=== PATIENT | female | born 1985 | race Caucasian/White ===

== ENCOUNTER 2018-02-28 18:56 | Inpatient (IN) | payer MEDICAID, OTHER ==
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
[2018-02-28] MEDS ORDERED: OLANZapine DISINTEGR 5 MG TAB PO ONE (19:07)
[2018-02-28 20:05] LABS: PLATELET COUNT 185 10^3/uL (150-400)
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
--- NOTE | 2018-02-28 22:06 | ASMTTCLDSP ---
TLC Discharge Disposition Disposition: Answers: Admit Disposition Notes: Notes: In consultation with [facility] ED Physician, Adarsh Wasserman MD and on-call Psychiatrist, Chito Willson both concurred that pt appears to meet 27-65 criteria regarding psychiatric hospitalization as pt appears to be at risk of harm to self due to a mental illness condition. Pt was given the 3N prohibited belongings list while in the ED. Was patient given the Answers: Yes Inpatient Behavioral Health Prohibited Belongings List while in the ED? For inpatient Dr Chito Willson admission, the following psychiatrist agreed to accept patient for admission to Behavioral Health ([facility]): Type of Hold: Answers: /72-hour Hold Date Signed: 02/28/2018 10:06 PM Electronically Signed By:Estrellita Green
[2018-02-28] MEDS ORDERED: LORazepam 0.5 MG TAB PO PRN (23:55)
[2018-02-28] MEDS ORDERED: OLANZapine DISINTEGR 5 MG TAB PO PRN (23:55)
[2018-02-28] MEDS ORDERED: MELATONIN 3 MG TAB PO PRN (23:55)
[2018-02-28] MEDS ORDERED: MAGNESIUM HYDROXIDE 30 ML UDCUP PO PRN (23:55)
[2018-02-28] MEDS ORDERED: MAG HYDROX/AL HYDROX/SIMETH 30 ML UDCUP PO PRN (23:55)
[2018-02-28] MEDS ORDERED: ACETAMINOPHEN 325 MG TAB PO PRN (23:55)
--- NOTE | 2018-03-01 07:05 | PDMN ---
Medical Necessity Medical necessity: [facility] [id number] Schizophrenia Spectrum Disorders, Adult: Inpatient Care: 32 yo w/ unspecified schizophrenia spectrum and other psychotic d/o, r/o bipolar I d/o w/ psychotic features, mod cannabis use d/o. Risk of harm to self on M1 hold.
--- NOTE | 2018-03-01 09:32 | ASMTBHMTP ---
Master Treatment Plan Master Treatment Plan Answers: Depressed Mood with for: Suicidal Ideation Date: 03/01/2018 Diagnosis on Admission: Bipolar I Disorder, with psychotic features, recent episode hypomanic 296.44 (F31.2) Expected length of stay: 3-5 Reason for admission: Notes: The patient stated, "I've not been feeling well. I felt like I was being shocked in the back. I couldn't remember what day it is. I felt really dazed, like I was drugged." Patient's stated presenting problems: Notes: The patient stated, Sometimes I don't have control over what I say and I really don't like that. I hear voices. The voices vary from instructional, funny, and kind of like uh... what... [gossip like]. I feel stuff every once in a while; like I'm being pat on the shoulder. I went to spiritism about it. I like the instructional ones best; turn left, turn right, pick this up." Patient's goals for treatment: Notes: The patient stated, "I want to feel better. I felt woozy after they melanie my blood yesterday." Patient's strengths: Notes: The patient stated, "Confident and nice." Identify supports outside of hospital: Notes: The patient denied family support. She reported that her parents live in [place] and her sister and [id number] live in [place], [place]. She stated that her relationships with family are "not good." The patient identified outpatient providers including psychiatrist and a counselor at [facility]. Discharge criteria: Notes: Suicidal ideation will resolve and patient will have a plan for to safely manage recurrent suicidal ideation. Initial disposition plan/considerations: Notes: The patient plans to return to where she was living prior to admission; her spiritism. She reported that the living situation was stable until yesterday when "It didn't seem like it did before. The vibes were different. People were off." Master Treatment Plan Required Signatures Psychiatrist signature: Answers: Psychiatrist: RN on-shift signature: Answers: RN: Patient signature: Answers: Patient: Date Signed: 03/01/2018 09:31 AM Electronically Signed By:Cecy Mei
--- NOTE | 2018-03-01 17:19 | SOAPPROG ---
SOAP Progress Note Assessment/Plan: Assessment: Plan: 03/01/18 17:18 Psychosis: Will continue PRN Zyprexa, monitor status. Complete full evaluation when patient more able to give history. Subjective: Pt seen, discussed with staff, chart reviewed. 32 y/o CF with hx of "chronic psychosis." Admitted due to paranoid delusions and AH's. She is sedated, unable to participate in interview on two occasions today. Objective: Vital Signs Temp Pulse Resp BP Pulse Ox 36.7 C 74 16 104/68 96 03/01/18 00:20 03/01/18 00:20 03/01/18 00:20 03/01/18 00:20 03/01/18 00:20 - Time Spent With Patient Time Spent With Patient: 25" ICD10 Worksheet Patient Problems: Problems Problem Status Onset Acute psychosis Acute
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
[2018-03-01] MEDS: OLANZapine DISINTEGR 5 MG TAB PO PRN (19:04)
[2018-03-01] MEDS: NICOTINE POLACRILEX 2 MG GUM B PRN ×3 (19:08→21:42)
[2018-03-02] MEDS: FERROUS SULFATE 325 MG TAB PO SCH (08:14)
[2018-03-02] MEDS: OLANZapine DISINTEGR 5 MG TAB PO PRN ×2 (08:15→12:14)
[2018-03-02] MEDS: NICOTINE POLACRILEX 2 MG GUM B PRN ×4 (08:58→17:34)
[2018-03-02] MEDS: LORazepam 0.5 MG TAB PO PRN (12:14)
--- NOTE | 2018-03-02 15:19 | ASMTCMCOM ---
CM Note CM Note Notes: The patient participated in clinical treatment team rounds. She was labile and irritable. She stated, "I'm bored. I feel sick. I know how my own body feels. I shouldn't have to struggle in my own body." The patient reported that she "had no idea" or "didn't know" how the treatment team could support her. The patient declined to start medication. The patient was asked about previous providers including [facility]. Per Tory, from [facility], the patient was discharged from [facility] care. She stated, "I don't like that brice he is an idiot." Upon learning the psychiatrist's name the patient stated, "You guys just make this shit up. Ya right." According to [facility] staff, the patient has been refusing PRN medication and has been observed responding to internal stimuli. Date Signed: 03/02/2018 03:16 PM Electronically Signed By:Cecy Mei
--- NOTE | 2018-03-02 17:20 | BAPA ---
DATE OF SERVICE: 03/02/2018 DATE OF EVALUATION: 03/01/2018 and 03/02/2018. CHIEF COMPLAINT: "They were trying to hurt me." HISTORY OF PRESENT ILLNESS: The patient is a 32-year-old female with a self-reported histo ry of "psychosis." She presented to the emergency department after having been brought in by police after causing a disturbance in the public, possibly in a nondenominational, where she stated she was being stabb ed by invisible people. In the emergency department, she was extremely guarded, hostile, paranoid, a nd appeared to be responding to internal stimuli. She was not forthcoming of history and was not fam iliar to [facility] or ER staff. She stated that she was being attacked, but she would not give details of this. I went to interview her yesterday on 2 occasions and she refused to speak. Earlier in the [facility], she was asleep and later she was guarded and refused to talk, acting as if she was still sleepi ng. This morning she is more interactive, though is extremely paranoid and hostile. She is interviewed i n our treatment team meeting and is obviously suspicious. I introduced myself as Dr. Guerrero and she states, "That is your real name. Right." She then stared at me suspiciously and hostilely for anot her 5 minutes, refusing to answer further questions until she abruptly left the interview. In the va lieu, she is noted to be talking to herself and at times seeming to argue with unseen persons. She i s hostile to fellow patients and staff, and does not tolerate being asked any questions. I attempted to discuss with her what medications she normally takes and she states she has never taken any medic ations. I do not believe this to be true and asked her if there were any medicines that worked for h er and she named several medicines that she stated did not work for her including Risperdal, Zyprexa, and Seroquel. PAST PSYCHIATRIC HISTORY: Significant for a history of chronic psychosis, though where this informat ion comes from I do not know. The patient will not give any other information in regard to past medi cations or past hospitalizations. ALLERGIES: Cefaclor. CURRENT MEDICATIONS: None. PAST MEDICAL HISTORY: Noncontributory per patient's report. SOCIAL HISTORY: Largely unknown. The patient states that she lives in a nondenominational and gives the addres s of a nondenominational in [facility] as her home address. She then insists she lives in a nondenominational in [place]. She has a primary care physician, Dr. Navarro, in [place] and there is information that she used to attend [facility]. FAMILY HISTORY: The patient denies any family history of psychiatric problems. [facility] report states th at she said both of her parents have mental health problems. ADMISSION LABORATORY: CBC shows white count down at 3.58, hemoglobin and hematocrit down at 12.1 and 37.1. MCV is normal at 97.4. Serum chemistries are normal. Hemoglobin A1c is normal at 5.7. Live r function is normal. Lipid profile is normal. Beta hCG is negative. Urine drug screen is positive for marijuana. Alcohol is less than detectable. MENTAL STATUS EXAMINATION: Reveals a robust, healthy-appearing, female. She has very shor t hair and is dressed in hospital garb. She stares in angry and hostile way at me throughout the int erview and then mumbles under her breath. I can hear swear words, but cannot make out anything else. Her affect is angry and constricted. Her mood is described as "totally messed up." Her thought pr ocess is disorganized. Her thought content reveals paranoid and persecutory delusions, possible leslie tory hallucinations, and possible tactile hallucinations of being stabbed or touched. She is alert a nd oriented to person, place, time, and situation, and her sensorium is clear. It is difficult to as sess her intellect at this time. She will not answer questions regarding suicidality, homicidality, or violence. Her insight and judgment appear to be poor. IMPRESSION: Unspecified psychotic disorder. 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 Possible schizoph jaimee, paranoid type, chronic with acute exacerbation. Homelessness. Lack of support. Treatment no ncompliance. The patient is a 32-year-old female with a history of chronic psychosis of some type. She is most likely schizophrenic, though this could represent a cannabis-induced phenomena. She is very hostile and paranoid at this time and unwilling to cooperate. She did take medications offered to he r on a p.r.n. basis, specifically Ativan and Zyprexa, and we will continue these. I will give a sche duled dose of 10 mg Zyprexa at bedtime to hopefully re-establish her sleep cycle and treat her acute psychosis. Attempts to discuss the risks, benefits, and alternatives with her are unsuccessful as luca whitt terminates the interview abruptly if I bring up the subject. Estimated length of stay is 5-7 days. /[id number]/MODL
[2018-03-02] MEDS: OLANZapine DISINTEGR 10 MG TAB PO SCH (21:27)
[2018-03-03] MEDS: FERROUS SULFATE 325 MG TAB PO SCH ×2 (08:12→08:57)
[2018-03-03] MEDS: NICOTINE POLACRILEX 2 MG GUM B PRN ×3 (08:44→16:16)
[2018-03-03] MEDS: LORazepam 0.5 MG TAB PO PRN (11:08)
[2018-03-03] MEDS: OLANZapine DISINTEGR 5 MG TAB PO PRN (11:08)
--- NOTE | 2018-03-03 17:40 | SOAPPROG ---
SOAP Progress Note Assessment/Plan: Assessment: Per Dr. Guerrero's notes: 03/01/18 17:18 Psychosis: Will continue PRN Zyprexa, monitor status. Complete full evaluation when patient more able to give history. Subjective: Pt seen, discussed with staff, chart reviewed. 32 y/o CF with hx of "chronic psychosis." Admitted due to paranoid delusions and AH's. She is sedated, unable to participate in interview on two occasions today. Plan: 03/03/18 17:36 1. Patient irritable and agitated this AM. She was calling other patients "fat" and "ugly" and needed to be redirected to her room to calm down. Patient agreed to take PRN of Zyprexa and Ativan, and slept most of the rest of the day. 2. Patient agreed take Olanzapine 10mg HS. 3. Change legal status to [facility]. Subjective: Patient acting inappropriately this AM. She was calling peers "fat" and "ugly" despite numerous interventions from staff. Eventually she was redirected to her room where she took space and calmed down. She took PRN meds and slept most of the day. She was calmer and more cooperative in PM. Objective: Vital Signs Temp Pulse Resp BP Pulse Ox 36.8 C 69 20 97/52 L 95 03/03/18 06:00 03/03/18 06:00 03/03/18 06:00 03/03/18 06:00 03/03/18 06:00 MSE: Affect: Irritable Mood: "OK", agitated at times TP: Tangential, disorganized TC: Denies any SI/HI Insight/Judgment: Impaired - Time Spent With Patient Time Spent With Patient: 15" - Pending Discharge Pending Discharge Within 24 Hours: No Pending Discharge Within 48 Hours: No ICD10 Worksheet Patient Problems: Problems Problem Status Onset Acute psychosis Acute
[2018-03-03] MEDS: OLANZapine DISINTEGR 10 MG TAB PO SCH (21:34)
[2018-03-04] MEDS: FERROUS SULFATE 325 MG TAB PO SCH (08:30)
[2018-03-04] MEDS: NICOTINE POLACRILEX 2 MG GUM B PRN ×6 (08:51→21:00)
--- NOTE | 2018-03-04 13:58 | ASMTCMCOM ---
CM Note CM Note Notes: The patient reported that she was "bored." She stated, "The bigger nurses were like blah, blah, blah." The patient signed releases of information for her sister, [employer]ers ([phone]), and [facility] ([facility]). This blurb writer left a voicemail with the patient's sister. This blurb writer discussed with the patient starting services with [facility] outpatient if she decides to stay in [place], [place] upon discharge. The patient agreed to follow up with [facility] services. This blurb writer sent a referral to [facility] for the patient. Date Signed: 03/04/2018 01:57 PM Electronically Signed By:Cecy Mei
--- NOTE | 2018-03-04 17:57 | SOAPPROG ---
SOAP Progress Note Assessment/Plan: Assessment: Per Dr. Guerrero's notes: 03/01/18 17:18 Psychosis: Will continue PRN Zyprexa, monitor status. Complete full evaluation when patient more able to give history. Subjective: Pt seen, discussed with staff, chart reviewed. 32 y/o CF with hx of "chronic psychosis." Admitted due to paranoid delusions and AH's. She is sedated, unable to participate in interview on two occasions today. Plan: 03/03/18 17:36 1. Patient irritable and agitated this AM. She was calling other patients "fat" and "ugly" and needed to be redirected to her room to calm down. Patient agreed to take PRN of Zyprexa and Ativan, and slept most of the rest of the day. 2. Patient agreed take Olanzapine 10mg HS. 3. Change legal status to [facility]. 03/04/18 17:53 1. Patient less irritable today. She is not aggressive or hostile toward peers, but has been rude and irritable toward staff. 2. Patient is compliant with medications and did attend at least one group therapy today. 3. Patient is more present in milieu, slept 8hrs last night and ate 100% of meals. 4. [facility] Subjective: Patient sitting in chair in front of TV playing games with peers. She is laughing and making jokes with peers. She is less hostile and not insulting peers, but her jokes are making fun of staff. When prompted, she does cooperate and change topic of conversation. She has not needed any PRN medications for agitation or anxiety today. Objective: Vital Signs Temp Pulse Resp BP Pulse Ox 37 C 102 H 20 93/53 L 95 03/04/18 06:00 03/04/18 06:00 03/04/18 06:00 03/04/18 06:00 03/04/18 06:00 MSE: Affect: Euthymic, less irritable Mood: "I feel gross" TP: Tangential, disorganized TC: Denies any SI/HI, no paranoia Insight/Judgment: Poor - Time Spent With Patient Time Spent With Patient: 15" - Pending Discharge Pending Discharge Within 24 Hours: No Pending Discharge Within 48 Hours: No ICD10 Worksheet Patient Problems: Problems Problem Status Onset Acute psychosis Acute
[2018-03-04] MEDS: OLANZapine DISINTEGR 10 MG TAB PO SCH (21:00)
[2018-03-05] MEDS: FERROUS SULFATE 325 MG TAB PO SCH (08:03)
[2018-03-05] MEDS: OLANZapine DISINTEGR 5 MG TAB PO PRN (08:03)
[2018-03-05] MEDS: NICOTINE POLACRILEX 2 MG GUM B PRN ×3 (12:40→19:21)
--- NOTE | 2018-03-05 14:50 | SOAPPROG ---
SOAP Progress Note Assessment/Plan: Assessment: Plan: 03/01/18 17:18 Psychosis: Will continue PRN Zyprexa, monitor status. Complete full evaluation when patient more able to give history. 03/05/18 14:50 Psychosis: Some improvement. CCM. Subjective: Pt seen, discussed with staff, chart reviewed. She is not interested in interacting with me. Laughs when I reintroduce myself, saying, "Yeah right" under her breath. Appears brighter, less hostile. Staff reports pt continues to demonstrate high level of adolescent, oppositional behavior. Continues to argue with and insult staff, frequently attempting to incite other patients and encourage non-compliance. Took scheduled dose of Zyprexa last night and PRN this morning. Objective: Vital Signs Temp Pulse Resp BP Pulse Ox 36.8 C 76 16 100/60 96 03/05/18 06:00 03/05/18 06:00 03/05/18 06:00 03/05/18 06:00 03/05/18 06:00 MSE: Better groomed, calmer, less hostile. Affect is o/w softer, less angry, restricted. Mood is "fine." TP is disorganized. TC reveals continued paranoia. - Time Spent With Patient Time Spent With Patient: 15" ICD10 Worksheet Patient Problems: Problems Problem Status Onset Acute psychosis Acute
[2018-03-05] MEDS: OLANZapine DISINTEGR 10 MG TAB PO SCH (21:58)
--- NOTE | 2018-03-06 10:16 | ASMTCMCOM ---
CM Note CM Note Notes: CC checked in with ct. Ct. continues to present as very guarded. She demanded to see the MD and said that she would like to be seen by a woman MD. CC let ct. know that there is no woman MD on the unit today. Ct. was somewhat inappropriate saying that she would not allow the "fat nurses" to take care of her. She also said that she would like to be discharged. Date Signed: 03/06/2018 10:16 AM Electronically Signed By:Ericka Ravi
[2018-03-06] MEDS: FERROUS SULFATE 325 MG TAB PO SCH (12:01)
[2018-03-06] MEDS: NICOTINE POLACRILEX 2 MG GUM B PRN ×2 (13:45→21:59)
--- NOTE | 2018-03-06 20:41 | SOAPPROG ---
SOAP Progress Note Assessment/Plan: Assessment: Plan: 03/01/18 17:18 Psychosis: Will continue PRN Zyprexa, monitor status. Complete full evaluation when patient more able to give history. 03/05/18 14:50 Psychosis: Some improvement. CCM. 03/06/18 11:37 Psychosis: No change. Remains actively psychotic. Refusing meds now. Will [facility], review Treatment Plan. Subjective: Pt seen, discussed with staff. Continues to avoid talking to me. States, "You are not a doctor." Calmer and less oppositional on the unit. Refused the Zyprexa last night. Slept only 2.5 hours. Remains paranoid and internally focused. Thoughts remains disorganized. Objective: Vital Signs Temp Pulse Resp BP Pulse Ox 36.8 C 76 16 100/60 96 03/05/18 06:00 03/05/18 06:00 03/05/18 06:00 03/05/18 06:00 03/05/18 06:00 MSE: Calm, coop. Affect is restricted, stable. Mood is "bad." TP disorganized, unable to give goal-directed answers to questions. TC reveals paranoid thoughts, AH's/RIS. - Time Spent With Patient Time Spent With Patient: 15" ICD10 Worksheet Patient Problems: Problems Problem Status Onset Acute psychosis Acute
[2018-03-06] MEDS: OLANZapine DISINTEGR 10 MG TAB PO SCH (21:21)
[2018-03-07] MEDS: FERROUS SULFATE 325 MG TAB PO SCH (08:11)
[2018-03-07] MEDS: NICOTINE POLACRILEX 2 MG GUM B PRN ×5 (08:41→19:51)
--- NOTE | 2018-03-07 11:41 | SOAPPROG ---
SOAP Progress Note Assessment/Plan: Assessment: Plan: 03/01/18 17:18 Psychosis: Will continue PRN Zyprexa, monitor status. Complete full evaluation when patient more able to give history. 03/05/18 14:50 Psychosis: Some improvement. CCM. 03/06/18 11:37 Psychosis: No change. Remains actively psychotic. Refusing meds now. Will [facility], review Treatment Plan. 03/07/18 11:41 Psychosis: No change. Continues to refuse Zyprexa. She seems to indicate she will take it tonight. Will [facility], petition for [facility] if continued refusal. Subjective: Pt seen, discussed with staff, interviewed in Treatment Team meeting. Refused Zyprexa again last night, but has no memory of this. States, "I don't know what you mean. There were no meds last night." Unable to reorient pt to situation. She voices no objections to the medication on direct questioning, but does not verbalize willingness to take it either. Is distracted during interview by "feeling like someone is pushing my head down." Continuously looks behind her to see who is doing this and becomes increasingly agitated, causing us to terminate interview. Objective: Vital Signs Temp Pulse Resp BP Pulse Ox 36.6 C 76 16 102/62 94 03/07/18 06:00 03/07/18 06:00 03/07/18 06:00 03/07/18 06:00 03/07/18 06:00 MSE: Marginally groomed, guarded. Affect is restricted, stable, less irritable. Mood is "fine." TP is disorganized, cannot give answers to simple questions. TC reveals continued paranoia, internal focus. - Time Spent With Patient Time Spent With Patient: 15" ICD10 Worksheet Patient Problems: Problems Problem Status Onset Acute psychosis Acute
--- NOTE | 2018-03-07 12:53 | ASMTCMCOM ---
CM Note CM Note Notes: CC faxed in court excuse for client. Client was scheduled on the docket for a court hearing tomorrow. CC was able to confirm case number, etc. CC placed excuse in the front of her chart. Additionally, sent another referral to [facility] for follow up care. [facility], noted that client was currently closed with them. Date Signed: 03/07/2018 12:53 PM Electronically Signed By:Herbert Suh
[2018-03-07] MEDS: OLANZapine DISINTEGR 10 MG TAB PO SCH (21:13)
[2018-03-08] MEDS: NICOTINE POLACRILEX 2 MG GUM B PRN ×4 (07:29→20:57)
[2018-03-08] MEDS: FERROUS SULFATE 325 MG TAB PO SCH (12:46)
--- NOTE | 2018-03-08 17:18 | SOAPPROG ---
SOAP Progress Note Assessment/Plan: Assessment: Plan: 03/01/18 17:18 Psychosis: Will continue PRN Zyprexa, monitor status. Complete full evaluation when patient more able to give history. 03/05/18 14:50 Psychosis: Some improvement. CCM. 03/06/18 11:37 Psychosis: No change. Remains actively psychotic. Refusing meds now. Will [facility], review Treatment Plan. 03/07/18 11:41 Psychosis: No change. Continues to refuse Zyprexa. She seems to indicate she will take it tonight. Will [facility], petition for COM if continued refusal. 03/08/18 17:18 Psychosis: No change. Non-compliant with meds. Will consider COM petition. Continue to encourage voluntary compliance. Subjective: Pt seen, discussed with staff. Refused Zyprexa again last night. Again today tells me she doesn't understand what I mean when I ask about that. Participating in some groups today. Remains generally aloof, guarded, isolative , paranoid. Eating, drinking and sleeping adequately. Less aggressive and hostile. Objective: Vital Signs Temp Pulse Resp BP Pulse Ox 37.1 C 62 16 101/65 96 03/08/18 06:00 03/08/18 06:00 03/08/18 06:00 03/08/18 06:00 03/08/18 06:00 MSE: Calmer, more coop. Affect is restricted, stable. Mood is "fine." TP is disorganized. TC reveals continued bizarre and paranoid delusions, IOR's, internal preoccupation. - Time Spent With Patient Time Spent With Patient: 15" ICD10 Worksheet Patient Problems: Problems Problem Status Onset Acute psychosis Acute
[2018-03-08] MEDS: OLANZapine DISINTEGR 10 MG TAB PO SCH (20:57)
[2018-03-09] MEDS: FERROUS SULFATE 325 MG TAB PO SCH (08:45)
[2018-03-09] MEDS: NICOTINE POLACRILEX 2 MG GUM B PRN ×3 (08:47→17:49)
--- NOTE | 2018-03-09 16:25 | SOAPPROG ---
SOAP Progress Note Assessment/Plan: Assessment: Plan: 03/01/18 17:18 Psychosis: Will continue PRN Zyprexa, monitor status. Complete full evaluation when patient more able to give history. 03/05/18 14:50 Psychosis: Some improvement. CCM. 03/06/18 11:37 Psychosis: No change. Remains actively psychotic. Refusing meds now. Will [facility], review Treatment Plan. 03/07/18 11:41 Psychosis: No change. Continues to refuse Zyprexa. She seems to indicate she will take it tonight. Will [facility], petition for COM if continued refusal. 03/08/18 17:18 Psychosis: No change. Non-compliant with meds. Will consider COM petition. Continue to encourage voluntary compliance. 03/09/18 16:25 Psychosis: Much improved overall. Always better after sleeping. Hope to see continued compliance with Zyprexa. Continue d/c planning. Subjective: Pt seen, discussed with staff. Pleasant and interactive with me. Able to discuss her care. Stats she believes the Zyprexa is helpful, but wet the bed last night and requests a lower dose. Much less irritable and inciting with others. Generally compliant with treatments. States she has no real plan for where she will go after d/c. States, "I was just hanging out by my scientology." Indicates she does not want to return to this circumstance. Objective: Vital Signs Temp Pulse Resp BP Pulse Ox 37 C 55 L 16 101/57 L 96 03/09/18 06:00 03/09/18 06:00 03/09/18 06:00 03/09/18 06:00 03/09/18 06:00 MSE: Adequately groomed, pleasant and cooperative. Affect is euthymic, stable. Mood is "pretty good." TP is generally linear. TC reveals no mention of paranoid thoughts, no obvious RIS. - Time Spent With Patient Time Spent With Patient: 15" ICD10 Worksheet Patient Problems: Problems Problem Status Onset Acute psychosis Acute
[2018-03-09] MEDS: OLANZapine DISINTEGR 10 MG TAB PO SCH (21:04)
[2018-03-10] MEDS: FERROUS SULFATE 325 MG TAB PO SCH (07:49)
[2018-03-10] MEDS: NICOTINE POLACRILEX 2 MG GUM B PRN ×4 (08:55→21:02)
[2018-03-10] MEDS ORDERED: LORazepam 1 MG TAB PO PRN (13:30)
--- NOTE | 2018-03-10 15:32 | SOAPPROG ---
SOAP Progress Note Assessment/Plan: Assessment: Per Dr. Guerrero's notes: 03/05/18 14:50 Psychosis: Some improvement. CCM. 03/06/18 11:37 Psychosis: No change. Remains actively psychotic. Refusing meds now. Will [facility], review Treatment Plan. 03/07/18 11:41 Psychosis: No change. Continues to refuse Zyprexa. She seems to indicate she will take it tonight. Will [facility], petition for COM if continued refusal. 03/08/18 17:18 Psychosis: No change. Non-compliant with meds. Will consider COM petition. Continue to encourage voluntary compliance. 03/09/18 16:25 Psychosis: Much improved overall. Always better after sleeping. Hope to see continued compliance with Zyprexa. Continue d/c planning. Subjective: Pt seen, discussed with staff. Pleasant and interactive with me. Able to discuss her care. Stats she believes the Zyprexa is helpful, but wet the bed last night and requests a lower dose. Much less irritable and inciting with others. Generally compliant with treatments. States she has no real plan for where she will go after d/c. States, "I was just hanging out by my roman catholic." Indicates she does not want to return to this circumstance. PLAN: 03/10/18 15:29 1. Patient told staff she wet bed again last night on lower dose of Olanzapine. 2. MD discussed option for trying another SGA. Patient has taken Risperdal in past, she denied any adverse effects on this med. She is willing to try one more night on Olanzapine before making decision to switch meds. 3. Patient says she has persistent feeling she is being "touched" but also claims it feels like she is being "punched." However, when she says this, MD does not observe any distress or physical reaction from patient. She will just nonchalantly say, "it feels like someone is punching me." 4. [facility] Subjective: Patient is sitting in chair in front of TV, calm, relaxed, no agitation or distress. She told MD that she is willing to try Olanzapine at lower dose another night and see if she continues to have enuresis. If so, patient would like to switch to a different antipsychotic. She tells MD, "it feels like someone is punching me," however, she shows no signs of distress or physical reaction of any kind. Objective: Vital Signs Temp Pulse Resp BP Pulse Ox 36.6 C 63 14 102/57 L 96 03/10/18 06:00 03/10/18 06:00 03/10/18 06:00 03/10/18 06:00 03/10/18 06:00 MSE: Affect: More pleasant, less irritable Mood: "OK" TP: Tangential, loose TC: Denies any SI/HI Perception: Denies any AH/VH, but reports feeling like she 's being "punched" Insight/Judgment: Poor, but improved - Time Spent With Patient Time Spent With Patient: 20" - Pending Discharge Pending Discharge Within 24 Hours: No Pending Discharge Within 48 Hours: No ICD10 Worksheet Patient Problems: Problems Problem Status Onset Acute psychosis Acute
[2018-03-10] MEDS: OLANZapine DISINTEGR 10 MG TAB PO SCH (21:44)
[2018-03-11] MEDS: FERROUS SULFATE 325 MG TAB PO SCH (08:13)
[2018-03-11] MEDS: NICOTINE POLACRILEX 2 MG GUM B PRN ×4 (08:14→20:40)
--- NOTE | 2018-03-11 14:40 | ASMTCMCOM ---
CM Note CM Note Notes: Pt. reports feeling "fine". Pt. stated she slept "fine" and is eating "way too much". Pt. stated she wants to speak to the MD about her medications. Pt. stated she has gone to all of the groups. Pt. stated she doesn't like a peer pt. and her friend on the unit also doesn't like this peer pt. Pt. reports feeling "physically sick" and making odd facial expressions to CC. Pt. denied SI, HI, and AVH. Pt. reports paranoia about "someone watching me at all times". Pt. then stated "I'm hearing stuff" and got up and walked away from CC. Pt. presents as alert, possibly responding to internal stimuli, fair to poor eye contact, somewhat cooperative and irritated. Staff report pt. sleeping 8 hours and being medication compliant. Date Signed: 03/11/2018 02:39 PM Electronically Signed By:Alisson Mcnally
--- NOTE | 2018-03-11 16:59 | SOAPPROG ---
SOAP Progress Note Assessment/Plan: Assessment: Per Dr. Guerrero's notes: 03/05/18 14:50 Psychosis: Some improvement. CCM. 03/06/18 11:37 Psychosis: No change. Remains actively psychotic. Refusing meds now. Will [facility], review Treatment Plan. 03/07/18 11:41 Psychosis: No change. Continues to refuse Zyprexa. She seems to indicate she will take it tonight. Will [facility], petition for COM if continued refusal. 03/08/18 17:18 Psychosis: No change. Non-compliant with meds. Will consider COM petition. Continue to encourage voluntary compliance. 03/09/18 16:25 Psychosis: Much improved overall. Always better after sleeping. Hope to see continued compliance with Zyprexa. Continue d/c planning. Subjective: Pt seen, discussed with staff. Pleasant and interactive with me. Able to discuss her care. Stats she believes the Zyprexa is helpful, but wet the bed last night and requests a lower dose. Much less irritable and inciting with others. Generally compliant with treatments. States she has no real plan for where she will go after d/c. States, "I was just hanging out by my synagogue." Indicates she does not want to return to this circumstance. PLAN: 03/10/18 15:29 1. Patient told staff she wet bed again last night on lower dose of Olanzapine. 2. MD discussed option for trying another SGA. Patient has taken Risperdal in past, she denied any adverse effects on this med. She is willing to try one more night on Olanzapine before making decision to switch meds. 3. Patient says she has persistent feeling she is being "touched" but also claims it feels like she is being "punched." However, when she says this, MD does not observe any distress or physical reaction from patient. She will just nonchalantly say, "it feels like someone is punching me." 4. STC 03/11/18 16:55 1. Patient reports no incontinence last night. Agrees to continue on current dose of Olanzapine. 2. Patient more irritable today, making derogatory comments about peers and staff on unit. 3. Patient still paranoid, feeling like "someone's watching me all the time." 4. STC Subjective: Patient more irritable and negative toward peers and staff. She has been calling peers names, such as "ugly," "creepy," and labeling them "unhealthy." Peers have taken offense and staff directed patient to take space if she can't use more appropriate language. Patient has complied. She told staff she feels as though "someone is watching" her "all the time," but doesn't know who it is. She did not have any incontinence last night. Objective: Vital Signs Temp Pulse Resp BP Pulse Ox 36.6 C 66 15 101/66 95 03/11/18 06:00 03/11/18 06:00 03/11/18 06:00 03/11/18 06:00 03/11/18 06:00 MSE: Affect: Irritable Mood: "Fine" TP: Tangential TC: Denies any SI/HI Insight/Judgment: Poor - Time Spent With Patient Time Spent With Patient: 15" - Pending Discharge Pending Discharge Within 24 Hours: No Pending Discharge Within 48 Hours: No ICD10 Worksheet Patient Problems: Problems Problem Status Onset Acute psychosis Acute
[2018-03-11] MEDS: OLANZapine DISINTEGR 10 MG TAB PO SCH (20:39)
[2018-03-12] MEDS: FERROUS SULFATE 325 MG TAB PO SCH (08:22)
[2018-03-12] MEDS: NICOTINE POLACRILEX 2 MG GUM B PRN ×6 (08:42→21:49)
--- NOTE | 2018-03-12 14:49 | SOAPPROG ---
SOAP Progress Note Assessment/Plan: Assessment: Plan: 03/01/18 17:18 Psychosis: Will continue PRN Zyprexa, monitor status. Complete full evaluation when patient more able to give history. 03/05/18 14:50 Psychosis: Some improvement. [facility]. 03/06/18 11:37 Psychosis: No change. Remains actively psychotic. Refusing meds now. Will [facility], review Treatment Plan. 03/07/18 11:41 Psychosis: No change. Continues to refuse Zyprexa. She seems to indicate she will take it tonight. Will [facility], petition for COM if continued refusal. 03/08/18 17:18 Psychosis: No change. Non-compliant with meds. Will consider COM petition. Continue to encourage voluntary compliance. 03/09/18 16:25 Psychosis: Much improved overall. Always better after sleeping. Hope to see continued compliance with Zyprexa. Continue d/c planning. 03/12/18 14:49 Psychosis: Continued improvement with some vacillation. [facility]. Finalize d/c plan. Subjective: Pt seen, discussed with staff, chart reviewed. She was reportedly more irritable and paranoid on Monday, but improved again on Monday. Also regressed to inciting others and displaying defiant behaviors towards staff. She is pleasant and interactive with me today. States she is "working on a discharge plan." Compliant with Zyprexa since decreasing to 5mg. No further incontinence. Objective: Vital Signs Temp Pulse Resp BP Pulse Ox 36.5 C 50 L 16 103/63 97 03/12/18 06:00 03/12/18 06:00 03/12/18 06:00 03/12/18 06:00 03/12/18 06:00 MSE: Calm, coop. Affect is euthymic, stable, approp. Mood is "good." TP is generally linear. TC reveals no mention of delusions or hallucinations. No SI/ HI/. - Time Spent With Patient Time Spent With Patient: 15" ICD10 Worksheet Patient Problems: Problems Problem Status Onset Acute psychosis Acute
[2018-03-12] MEDS: OLANZapine DISINTEGR 10 MG TAB PO SCH (20:34)
[2018-03-13] MEDS: NICOTINE POLACRILEX 2 MG GUM B PRN ×6 (09:20→20:36)
[2018-03-13] MEDS: FERROUS SULFATE 325 MG TAB PO SCH (09:20)
--- NOTE | 2018-03-13 11:41 | SOAPPROG ---
SOAP Progress Note Assessment/Plan: Assessment: Plan: 03/01/18 17:18 Psychosis: Will continue PRN Zyprexa, monitor status. Complete full evaluation when patient more able to give history. 03/05/18 14:50 Psychosis: Some improvement. [facility]. 03/06/18 11:37 Psychosis: No change. Remains actively psychotic. Refusing meds now. Will [facility], review Treatment Plan. 03/07/18 11:41 Psychosis: No change. Continues to refuse Zyprexa. She seems to indicate she will take it tonight. Will [facility], petition for COM if continued refusal. 03/08/18 17:18 Psychosis: No change. Non-compliant with meds. Will consider COM petition. Continue to encourage voluntary compliance. 03/09/18 16:25 Psychosis: Much improved overall. Always better after sleeping. Hope to see continued compliance with Zyprexa. Continue d/c planning. 03/12/18 14:49 Psychosis: Continued improvement with some vacillation. [facility]. Finalize d/c plan. 03/13/18 11:42 Psychosis: Appears to have stabilized in present condition. Unclear whether this is her baseline. Will [facility], continue d/c planning. Subjective: Pt seen, discussed with staff, interviewed in Treatment Team meeting. She continues to demonstrate an up and down pattern of behaviors and thinking. She is pleasant today, but becomes agitated easily, unable to adequately process questions from team. She gets frustrated when asked simple questions such as "Do you know where you will stay when you leave the hospital?" She indicates that she has no supports and no plan. Unable to make any suggestions to the team except that she would go to the alf, but does not know how to access it. CC notes that pt's family has stated she cannot stay with them. Objective: Vital Signs Temp Pulse Resp BP Pulse Ox 36.6 C 63 16 97/59 L 98 03/13/18 06:00 03/13/18 06:00 03/13/18 06:00 03/13/18 06:00 03/13/18 06:00 MSE: Adequately groomed, interactive. Affect is restricted, irritable. Mood is "I don't know." TP is linear for brief periods, easily derailed. TC reveals disorganized thoughts. - Time Spent With Patient Time Spent With Patient: 25" ICD10 Worksheet Patient Problems: Problems Problem Status Onset Acute psychosis Acute
--- NOTE | 2018-03-13 13:06 | ASMTBHDC ---
Notes Note: Notes: The patient attended clinical treatment team rounds. She was not cooperative. According to [facility] staff, the patient has not had any notable change in behavior and affect recently. The patient was reluctant to collaborate with discharge planning. However, she agreed to navigate [facility] services in the community. Date Signed: 03/13/2018 01:05 PM Electronically Signed By:Cecy Mei
[2018-03-13] MEDS: OLANZapine DISINTEGR 10 MG TAB PO SCH (20:35)
[2018-03-14] MEDS: FERROUS SULFATE 325 MG TAB PO SCH (07:43)
[2018-03-14] MEDS: NICOTINE POLACRILEX 2 MG GUM B PRN ×6 (08:20→21:32)
--- NOTE | 2018-03-14 14:29 | ASMTBHDC ---
Notes Note: Notes: The patient has upcoming outpatient appointments with [facility] for an intake to continue care. This global technical writer discussed the process for coordinated entry into the homeless correction with the patient. Date Signed: 03/14/2018 02:28 PM Electronically Signed By:Cecy Mei
--- NOTE | 2018-03-14 16:44 | SOAPPROG ---
SOAP Progress Note Assessment/Plan: Assessment: Per Dr. Guerrero's notes: 03/12/18 14:49 Psychosis: Continued improvement with some vacillation. [facility]. Finalize d/c plan. 03/13/18 11:42 Psychosis: Appears to have stabilized in present condition. Unclear whether this is her baseline. Will [facility], continue d/c planning. Subjective: Pt seen, discussed with staff, interviewed in Treatment Team meeting. She continues to demonstrate an up and down pattern of behaviors and thinking. She is pleasant today, but becomes agitated easily, unable to adequately process questions from team. She gets frustrated when asked simple questions such as "Do you know where you will stay when you leave the hospital?" She indicates that she has no supports and no plan. Unable to make any suggestions to the team except that she [facility] the [facility], but does not know how to access it. CC notes that pt's family has stated she cannot stay with them. PLAN: 03/14/18 16:41 1. Patient is less irritable today. She is playing games with several other peers. 2. Patient denies any psychotic sxs. No SI/HI. 3. CC explained the process for getting a bed at [facility] through [facility]. 4. Likely d/c on Monday Subjective: Patient playing with ball tossing it back & forth with peer on unit. She is less irritable. She says she feels "good" today and is pleasant to ask MD how he 's doing. She denies any AH/VH, does not endorse any paranoid delusions. Objective: Vital Signs Temp Pulse Resp BP Pulse Ox 36.7 C 61 16 90/54 L 98 03/14/18 06:00 03/14/18 06:00 03/14/18 06:00 03/14/18 06:00 03/14/18 06:00 MSE: Affect: Pleasant, euthymic Mood: "Good" TP: Goal-directed TC: Denies any SI/HI Insight/Judgment: Improved - Time Spent With Patient Time Spent With Patient: 15" - Pending Discharge Pending Discharge Within 24 Hours: No Pending Discharge Within 48 Hours: Yes Pending Discharge Date: 03/16/18 (Likely to d/c on Monday) Pending Discharge Time: 11:00 ICD10 Worksheet Patient Problems: Problems Problem Status Onset Acute psychosis Acute
[2018-03-14] MEDS: OLANZapine DISINTEGR 10 MG TAB PO SCH (20:27)
[2018-03-15 06:37] VITALS: BP 104/53
[2018-03-15] MEDS: FERROUS SULFATE 325 MG TAB PO SCH (08:42)
[2018-03-15] MEDS: NICOTINE POLACRILEX 2 MG GUM B PRN (08:44)
--- NOTE | 2018-03-15 12:31 | ASMTCMCOM ---
CM Note CM Note Notes: According to [facility] staff, the patient is attending and participating in groups. She is eating 100% of meals and sleeping nine hours. The patient is medication compliant. She plans to access coordinated entry to establish a pathway toward superintendent terminal resources. Initially, the patient expressed reluctance due to personal hx; the patient was directed to a intermediate and "ended up at a food bank." She stated, "As long as I'm going to the intermediate. I'll be okay." The patient expressed interest in therapy in addition to prescriber services. The patient's facial expression rapidly changed during the conversation. The patient seems to exhibit psychomotor agitation. She became distracted by her movements. She stated, "I'm sorry about that movement. I know my body very well and I'm not sure what that was." Date Signed: 03/15/2018 12:06 PM Electronically Signed By:Cecy Mei
--- NOTE | 2018-03-15 21:22 | BDS ---
REASON FOR ADMISSION: Patient is a 32-year-old female with a self- reported history of "psychosis." She presented to the emergency department, brought in by police after causing a disturbance in public. She was in a shinto , acting bizarrely and telling people that she felt like she was being stabbed by "invisible people." In the emergency department, she was hostile, paranoid, and appeared to be responding to internal stimuli. ADMITTING DIAGNOSES: 1. Unspecified psychotic disorder. 2. 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 3. Rule out schizophrenia, paranoid type. 4. Homelessness. 5. Lack of support. 6. Treatment noncompliance. PHYSICAL EXAMINATION: Done by Dr. Cecil Self, who noted no acute abnormal physical findings. She had anemia and leukopenia upon admission. He recommended following with a PCP after discharge. LABS: These are from 02/28/2018. White cell count was 3.58, hemoglobin 12.1, hematocrit 37.1, platelet count 185. Sodium 135, potassium 4.2, chloride 107, BUN 17, creatinine 0.8, glucose 113, hemoglobin A1c 5.7, calcium 8.9, iron 37, total iron blood count was 304, total bilirubin 0.2, AST 25, ALT 24, alkaline phosphatase 47, albumin 3.5, total protein 6.1. Cholesterol 152. Beta hCG was negative. Urine drug screen was positive for marijuana, and negative for all other drugs of abuse. HOSPITAL COURSE: Patient was admitted and seen by Dr. Ronak Guerrero. Her first day on the inpatient unit, she was extremely paranoid and hostile. She was obviously suspicious during the treatment team meeting, refused to talk with the treating psychiatrist. This MD saw the patient over the weekend of and 03/04. She was irritable and agitated, calling other patient's names. She refused to take olanzapine. She was placed on a short-term certification due to grave disability. Patient did agree to take olanzapine p.r.n. There was noted to be some improvement. She was less irritable, less hostile, but she continued to refuse scheduled doses of medication. She only wanted to take the medications some of the time. During the course of her first week in the hospital, the patient was much less irritable, not instigating conflicts with peers, able to be present in the milieu and act appropriately. She told Dr. Guerrero that she believed that the olanzapine was "helpful." She says that she does not really believe she needs to be on medication. She initially did agree to take a scheduled dose of olanzapine 10 mg p.o. at bedtime, but after the first night of taking the medication, she was incontinent of urine, and she believed it was due to sedation from the medication. This MD saw the patient again on 03/10 and 03/11. She said that she wanted to try a lower dose of medication. This MD discussed with her the option for trying another second generation atypical antipsychotic. She reported that she has taken Risperdal in the past, and she denied any adverse effects with this medication, but she told this MD that she was willing to give the olanzapine 1 additional night at a lower dose at 5 mg p.o. q.h.s. before making a decision to switch medications. Patient continued to report that she had tactile disturbances, saying that she felt like she was being "touched" and also claimed that she felt like she was being "punched;" however, when she said this to the MD, the MD did not observe any distress or physical reaction from the patient whatsoever. She nonchalantly said, "It feels like someone is punching me." After her second night of taking the reduced dose of olanzapine at bedtime, she denied having any more incontinence. She agreed to continue on this medication at the [address] Guerrero, who saw the patient on 03/12 and on March 13, noted that the patient appeared to have stabilized, that there was less mood instability. She was less labile, less emotional, decreased irritability. She was not endorsing any auditory or visual hallucinations. She denied paranoid delusions. She was not observed to be responding to internal or external stimuli. When this MD saw the patient on the day prior to her discharge, she was pleasant, cooperative , interacting appropriately with peers. She was playing a game with several other peers, laughing and smiling appropriately. She denied any psychotic symptoms. She reported no thoughts, plans, or intents to hurt herself or anyone else. The emergency care attendant spoke with the patient about getting a [facility]. The patient said that that would be "good plan." She said that she felt better and said that she thought that the medications were helping her and wanted to stay on the olanzapine. DISCHARGE MEDICATIONS: Patient was discharged on ferrous sulfate 325 mg p.o. daily, melatonin 3-6 mg p.o. q.h.s. p.r.n., olanzapine/Zydis 5 mg p.o. q.h.s. DISCHARGE DIAGNOSES: 1. Psychosis, not otherwise specified. 2. Rule out substance-induced psychosis. 3. Cannabis use disorder, severe. 4. Homeless. 5. Lack of social support. 6. Noncompliant with treatment in the past. CONDITION AT DISCHARGE: Patient was in good spirits. Stable condition. She reports that her mood is "better." She denies any thoughts, plans, or intents to hurt herself or anyone else. She denies any psychotic symptoms. ATTITUDE AT DISCHARGE: The patient says that she does not care where she goes after discharge. She says that she is fine staying at the homeless penitentiary. She agrees to follow up with [facility] to have her medications monitored. FOLLOWUP CARE: The staff arranged a penitentiary bed for the patient in the inclement weather penitentiary at [facility], and she said that she would go there tonight and follow up with P. /[id number]/MODL MTDD
== END 2018-03-15 17:00 | disposition home or self-care (01) | DRG 885 ==
LOC: BBEH 23:43
PROVIDERS: ADMIT Psychiatry & Neurology Psychiatry; ATTEND Psychiatry & Neurology Psychiatry
DX: F23 Brief psychotic disorder (principal); F12.959 Cannabis use, unspecified with psychotic disorder, unspecified; Z59.0 Homelessness; T43.506A Underdosing of unspecified antipsychotics and neuroleptics, initial encounter; F17.200 Nicotine dependence, unspecified, uncomplicated; R19.7 Diarrhea, unspecified; D64.9 Anemia, unspecified
CPT/HCPCS: 80305; G0480

== ENCOUNTER 2018-03-19 23:48 | Emergency (ER) | payer MEDICAID ==
--- NOTE | 2018-03-20 00:28 | EDPHY ---
H & P Stated Complaint: M1, Psychosis from penitentiary, recent dc from [facility] - Personal History LMP (Females 10-55): Irregular Current Tetanus Diphtheria and Acellular Pertussis (TDAP): No - Medical/Surgical History Hx Asthma: No Hx Chronic Respiratory Disease: No Hx Diabetes: No Hx Cardiac Disease: No Hx Renal Disease: No Hx Cirrhosis: No Hx Alcoholism: No Hx HIV/AIDS: No Hx Splenectomy or Spleen Trauma: No Other PMH: psychosis - Social History Smoking Status: Heavy smoker Time Seen by Provider: 03/20/18 00:02 HPI/ROS: Chief Complaint: Possible psychosis HPI: 32-year-old woman with a history of schizoaffective disorder is being brought in from penitentiary on a mental health hold. Patient states that she has been hearing voices for the last month. She has not been compliant with her usual medications. Denies depression or suicidality. She has been in penitentiary for the last 3 days. States he medication she has been taking is Ativan occasionally. No fevers or chills. No cough. ROS: 10 systems were reviewed and were negative except those elements noted in the HPI. PMH: Schizoaffective disorder Social History: No smoking Family History: non-contributory Physical Exam: Gen: Awake, Alert, No Distress HEENT: Nose: no rhinorrhea Eyes: PERRLA, EOMI Mouth: Moist mucosa Neck: Supple, no JVD Chest: nontender, lungs clear to auscultation Heart: S1, S2 normal, no murmur Abd: Soft, non-tender, no guarding Back: no CVA tenderness, no midline tenderness Ext: no edema, non-tender Skin: no rash Neuro: CN II-XII intact, Sensation grossly intact, Strength 5/5 in bilateral upper and lower extremities (Jitendra Moreau) Constitutional: Initial Vital Signs Temperature (C) 36.6 C 03/20/18 00:00 Heart Rate 56 L 03/20/18 00:00 Respiratory Rate 17 03/20/18 00:00 Blood Pressure 125/79 H 03/20/18 00:00 O2 Sat (%) 98 03/20/18 00:00 O2 Delivery Mode Room Air Allergies/Adverse Reactions: cefaclor [From [facility]] Allergy (Verified 03/20/18 00:02) Home Medications: Medication Instructions Recorded Ferrous Sulfate [Ferrous Sulf 325 325 mg PO DAILY #30 tab 03/15/18 MG (*)] Melatonin [Melatonin 3 MG (*)] 3 - 6 mg PO HS PRN #30 tab 03/15/18 OLANZapine DISINTEGR [ZyPREXA 5 mg PO HS #30 tab 03/15/18 ZYDIS (*)] Medical Decision Making ED Course/Re-evaluation: This patient was turned over to pa at change of shift. This patient has been evaluated by the mental health professionals. They have deemed this patient is safe to be discharged for outpatient follow-up. (Ney Bailey) - Data Points Laboratory Results: Laboratory Results 03/20/18 00:05 03/20/18 00:05 03/20/18 03/20/18 03/20/18 07:30 00:05 00:05 WBC RBC Hgb Hct MCV MCH MCHC RDW Plt Count MPV Neut % (Auto) Lymph % (Auto) [place] % (Auto) Eos % (Auto) Baso % (Auto) Nucleat RBC Rel Count Absolute Neuts (auto) Absolute Lymphs (auto) Absolute Monos (auto) Absolute Eos (auto) Absolute Basos (auto) Absolute Nucleated RBC Immature Gran % Immature Gran # Sodium 140 mEq/L mEq/L (135-145) Potassium 3.7 mEq/L mEq/L (3.5-5.2) Chloride 107 mEq/L mEq/L (97-110) Carbon Dioxide 26 mEq/l mEq/l (22-31) Anion Gap 7 mEq/L mEq/L (6-14) BUN 8 mg/dL mg/dL (7-23) Creatinine 0.6 mg/dL mg/dL (0.6-1.0) Estimated GFR > 60 Glucose 85 mg/dL mg/dL (70-100) Calcium 9.1 mg/dL mg/dL (8.5-10.4) Beta HCG, Qual NEGATIVE Urine Opiates Screen NEGATIVE (NEGATIVE) Urine Barbiturates NEGATIVE (NEGATIVE) Ur Phencyclidine Scrn NEGATIVE (NEGATIVE) Ur Amphetamine Screen NEGATIVE (NEGATIVE) U Benzodiazepines Scrn NEGATIVE (NEGATIVE) Urine Cocaine Screen NEGATIVE (NEGATIVE) U Marijuana (THC) Screen NEGATIVE (NEGATIVE) Ethyl Alcohol < 10 mg/dL mg/dL (0-10) 03/20/18 00:05 WBC 6.49 10^3/uL 10^3/uL (3.80-9.50) RBC 4.42 10^6/uL 10^6/uL (4.18-5.33) Hgb 13.6 g/dL g/dL (12.6-16.3) Hct 43.2 % % (38.0-47.0) MCV 97.7 fL fL (81.5-99.8) MCH 30.8 pg pg (27.9-34.1) MCHC 31.5 g/dL L g/dL (32.4-36.7) RDW 13.7 % % (11.5-15.2) Plt Count 173 10^3/uL 10^3/uL (150-400) MPV 12.3 fL H fL (8.7-11.7) Neut % (Auto) 48.2 % % (39.3-74.2) Lymph % (Auto) 32.0 % % (15.0-45.0) [place] % (Auto) 9.2 % % (4.5-13.0) Eos % (Auto) 9.9 % H % (0.6-7.6) Baso % (Auto) 0.5 % % (0.3-1.7) Nucleat RBC Rel Count 0.0 % % (0.0-0.2) Absolute Neuts (auto) 3.13 10^3/uL 10^3/uL (1.70-6.50) Absolute Lymphs (auto) 2.08 10^3/uL 10^3/uL (1.00-3.00) Absolute Monos (auto) 0.60 10^3/uL 10^3/uL (0.30-0.80) Absolute Eos (auto) 0.64 10^3/uL H 10^3/uL (0.03-0.40) Absolute Basos (auto) 0.03 10^3/uL 10^3/uL (0.02-0.10) Absolute Nucleated RBC 0.00 10^3/uL 10^3/uL (0-0.01) Immature Gran % 0.2 % % (0.0-1.1) Immature Gran # 0.01 10^3/uL 10^3/uL (0.00-0.10) Sodium Potassium Chloride Carbon Dioxide Anion Gap BUN Creatinine Estimated GFR Glucose Calcium Beta HCG, Qual Urine Opiates Screen Urine Barbiturates Ur Phencyclidine Scrn Ur Amphetamine Screen U Benzodiazepines Scrn Urine Cocaine Screen U Marijuana (THC) Screen Ethyl Alcohol Departure - Departure Disposition: Home, Routine, Self-Care Clinical Impression: Acute psychosis Condition: Good Instructions: Brief Psychotic Disorder (ED) Referrals: NONE *PRIMARY CARE P,. [Primary Care Provider] - As per Instructions
[2018-03-20 01:06] LABS: PLATELET COUNT 173 10^3/uL (150-400)
[2018-03-20 07:25] VITALS: BP 105/74
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
--- NOTE | 2018-03-20 09:13 | ASMTTCLDSP ---
TLC Discharge Disposition Disposition: Answers: Discharge If Answers: Yes DISCHARGED: Patient/family given suicide hotline info & SAMHSA brochure? Disposition Notes: Notes: Pt stated commitment or ability to keep self safe, denied thoughts of self harm or harm to others. Pt expressed a desire to f/u with [facility] for medication monitoring. Pt was given local hotline information and SAMHSA brochure After an Attempt. Discharge Concerns/Recommendations: Notes: In consultation with [facility] ED physician, Ney Bailey MD, / Lynn concurred that pt does not appear to meet 27-65 criteria requiring psychiatric hospitalization as pt does not appear to be an imminent risk of harm to self/others/gravely disabled due to a mental illness condition. Dr. Bailey provided verbal order read back vacating M1 hold at 0810 hrs. Was patient given the Answers: Not applicable Inpatient Behavioral Health Prohibited Belongings List while in the ED? Psychiatrist vacating M1 Ney Bailey MD Hold: Date and time M1 hold 03/20/2018 08:10 AM vacated (time format is hh:mm): Type of Hold: Answers: M1/72-hour Hold Hold initiated by: Answers: Other Notes: [facility] Date Signed: 03/20/2018 09:12 AM Electronically Signed By:Aguilar Vega
== END 2018-03-20 08:24 | disposition home or self-care (01) ==
DX: F23 Brief psychotic disorder (principal); F25.9 Schizoaffective disorder, unspecified
CPT/HCPCS: 80305; G0480

== ENCOUNTER 2018-03-20 22:03 | Emergency (ER) | payer MEDICAID ==
[2018-03-20 22:22] VITALS: BP 90/70
--- NOTE | 2018-03-20 22:50 | EDPHY ---
H & P Stated Complaint: mental health seen earlier many complaints Time Seen by Provider: 03/20/18 22:23 HPI/ROS: Chief Complaint: Toe pain, hearing voices HPI: 32-year-old woman with a history of schizoaffective disorder. I saw her this morning after she was released from detention was complaining of hearing voices. Patient has not been suicidal or homicidal. She did have a mental health evaluation this morning and there were no findings to support a mental health hold. Patient was discharged with outpatient follow-up. Patient states she does not know where to go for follow-up. She does state that she did meet a Monday and smokes marijuana. She is continuing hear voices. After smoking marijuana she did have a bed blurry vision which has since resolved. No falls or injuries. Is not seeing any whole visual hallucinations. Devoid she is hearing is not telling her to harm herself or others. Her laboratory evaluations this morning were unremarkable. She says she returned because she is not sure where to go as she is homeless. She is also complaining of pain in her left big toe. No recent injuries or falls. She does have a history of a screw in that foot years ago. ROS: 10 systems were reviewed and were negative except those elements noted in the HPI. PMH: Schizoaffective disorder Social History: No smoking, no alcohol, occasional marijuana Family History: non-contributory Physical Exam: Gen: Awake, Alert, No Distress HEENT: Nose: no rhinorrhea Eyes: PERRLA, EOMI Mouth: Moist mucosa Neck: Supple, no JVD Chest: nontender, lungs clear to auscultation Heart: S1, S2 normal, no murmur Abd: Soft, non-tender, no guarding Back: no CVA tenderness, no midline tenderness Ext: no edema, non-tender, left foot is nontender, nonerythematous, no focal tenderness, neurologically intact. Sensations normal. Capillary refills less than 3 sec. Skin: no rash Neuro: CN II-XII intact, Sensation grossly intact, Strength 5/5 in bilateral upper and lower extremities - Personal History LMP (Females 10-55): 22-28 Days Ago Current Tetanus/Diphtheria Vaccine: Yes Current Tetanus Diphtheria and Acellular Pertussis (TDAP): Yes - Medical/Surgical History Hx Asthma: No Hx Chronic Respiratory Disease: No Hx Diabetes: No Hx Cardiac Disease: No Hx Renal Disease: No Hx Cirrhosis: No Hx Alcoholism: No Hx HIV/AIDS: No Hx Splenectomy or Spleen Trauma: No Other PMH: psychosis - Social History Smoking Status: Heavy smoker Constitutional: Initial Vital Signs Temperature (C) 36.4 C 03/20/18 22:17 Heart Rate 90 03/20/18 22:17 Respiratory Rate 18 03/20/18 22:17 Blood Pressure 90/70 L 03/20/18 22:17 O2 Sat (%) 95 03/20/18 22:17 O2 Delivery Mode Room Air Allergies/Adverse Reactions: cefaclor [From Ceclor] Allergy (Verified 03/20/18 00:02) Home Medications: Medication Instructions Recorded Ferrous Sulfate [Ferrous Sulf 325 325 mg PO DAILY #30 tab 03/15/18 MG (*)] Melatonin [Melatonin 3 MG (*)] 3 - 6 mg PO HS PRN #30 tab 03/15/18 OLANZapine DISINTEGR [ZyPREXA 5 mg PO HS #30 tab 03/15/18 ZYDIS (*)] Medical Decision Making ED Course/Re-evaluation: 32-year-old woman presenting with complaints of hallucinations. Her symptoms have not changed since he was seen this morning. She did have a mental health evaluation. She is not gravely disabled. She is not a danger to self or others. [facility]. There is no evidence of acute medical or psychological emergency at this time. She had normal laboratory evaluations this morning. I do think that her symptoms have been exacerbated by her marijuana use today. I have cautioned her to avoid marijuana use in the future. She has been given information on how to contact [facility]. She will be [facility]. Departure - Departure Disposition: Home, Routine, Self-Care Clinical Impression: Schizoaffective disorder Condition: Good Instructions: Schizoaffective Disorder (ED) Additional Instructions: Follow up with [facility] tomorrow. Return emergency department for thoughts of harming yourself or others, hopelessness, worsening confusion, or any other concerns. Referrals: [facility],. [Clinic] - As per Instructions
== END 2018-03-20 22:57 | disposition home or self-care (01) ==
DX: F25.9 Schizoaffective disorder, unspecified (principal); F12.90 Cannabis use, unspecified, uncomplicated; F17.200 Nicotine dependence, unspecified, uncomplicated

== ENCOUNTER 2018-04-24 16:36 | Emergency (ER) | payer MEDICAID, OTHER ==
--- NOTE | 2018-04-24 17:02 | EDPHY ---
H & P Time Seen by Provider: 04/24/18 16:47 HPI/ROS: CHIEF COMPLAINT: Fall, unsteady HISTORY OF PRESENT ILLNESS: Patient is a 32-year-old female who is currently living at the retirement that presents to the emergency department via EMS. Patient states that couple of days ago she had a fall landing on the left side of her face. Since that time she she has felt slightly unsteady. She has no visual change. No focal weakness or numbness. No recurrent falls. Patient states her facial swelling has improved. She is minimal facial pain. REVIEW OF SYSTEMS: 10 systems were reveiwed and are negative with the exception of the elements mentioned in the history of present illness. Past Medical/Surgical History: Includes schizoaffective disorder Social history: Patient denies drugs or alcohol. Patient smokes cigarettes. Smoking Status: Current every day smoker Physical Exam: Vitals noted GENERAL: Well-appearing, in no acute distress, alert. HEENT: PERRLA. Extraocular movements intact. No nystagmus. Patient has mild swelling and bruising over her left forehead and cheek. No significant tenderness to palpation. Normal pharynx, no signs of dehydration. NECK: Normal, supple. No spinal tenderness. RESPIRATORY: Clear to auscultation bilaterally, no rales, rhonchi or wheezing. CVS: Regular rate and rhythm, no rubs, murmurs, or gallops. ABDOMEN: Soft, nontender, nondistended, no organomegaly. BACK: Normal to inspection, no CVA tenderness. No spinal tenderness SKIN: Normal color, no rash, warm, dry. No pallor. EXTREMITIES: No pedal edema, no calf tenderness, no Homans sign or cords, no joint swelling. NEURO/PSYCH: Higher functions: Alert and Oriented. Normal speech and cognition. Flat affect. Cranial nerves: Normal as tested. Cerebellar: Normal as tested. Good finger to nose, good [id number]. Patient has a negative Romberg. She has a slightly widened gait but appears stable. Peripheral exam: Normal motor exam. Normal sensation. Normal reflexes. Constitutional: Initial Vital Signs Temperature (C) 37 C 04/24/18 16:42 Heart Rate 90 04/24/18 16:42 Respiratory Rate 18 04/24/18 16:42 Blood Pressure 125/90 H 04/24/18 16:42 O2 Sat (%) 95 04/24/18 16:42 O2 Delivery Mode Nasal Cannula Allergies/Adverse Reactions: cefaclor [From Ceclor] Allergy (Verified 03/20/18 00:02) Cecacolre Allergy (Uncoded 04/24/18 16:47) Home Medications: Medication Instructions Recorded Ferrous Sulfate [Ferrous Sulf 325 325 mg PO DAILY #30 tab 03/15/18 MG (*)] Melatonin [Melatonin 3 MG (*)] 3 - 6 mg PO HS PRN #30 tab 03/15/18 OLANZapine DISINTEGR [ZyPREXA 5 mg PO HS #30 tab 03/15/18 ZYDIS (*)] Haldol 0.5 MG (*) 04/24/18 Medical Decision Making ED Course/Re-evaluation: In the emergency department I discussed possible etiologies with the patient. I answered all her questions. Laboratory studies and head CT were ordered. Patient was given 1 L of IV hydration CBC and chemistry are unremarkable. is negative. Head CT: Please refer the dictated report by Dr. Qiu. No acute disease noted. I discussed the results with the patient. I answered all her questions. Patient was able to ambulate emergency department. She was given warnings prior to leaving. She will return with worsening symptoms. Differential Diagnosis: My differential includes but is not limited to subarachnoid hemorrhage, subdural hematoma, epidural hematoma, electrolyte abnormality, sugar abnormality , dehydration, contusion - Data Points Laboratory Results: Laboratory Results 04/24/18 17:05 04/24/18 17:05 04/24/18 04/24/18 04/24/18 17:05 17:05 17:05 WBC 5.23 10^3/uL 10^3/uL (3.80-9.50) RBC 4.26 10^6/uL 10^6/uL (4.18-5.33) Hgb 13.1 g/dL g/dL (12.6-16.3) Hct 40.1 % % (38.0-47.0) MCV 94.1 fL fL (81.5-99.8) MCH 30.8 pg pg (27.9-34.1) MCHC 32.7 g/dL g/dL (32.4-36.7) RDW 13.7 % % (11.5-15.2) Plt Count 132 10^3/uL L 10^3/uL (150-400) MPV 12.3 fL H fL (8.7-11.7) Neut % (Auto) 59.4 % % (39.3-74.2) Lymph % (Auto) 22.4 % % (15.0-45.0) [place] % (Auto) 14.5 % H % (4.5-13.0) Eos % (Auto) 3.1 % % (0.6-7.6) Baso % (Auto) 0.6 % % (0.3-1.7) Nucleat RBC Rel Count 0.0 % % (0.0-0.2) Absolute Neuts (auto) 3.11 10^3/uL 10^3/uL (1.70-6.50) Absolute Lymphs (auto) 1.17 10^3/uL 10^3/uL (1.00-3.00) Absolute Monos (auto) 0.76 10^3/uL 10^3/uL (0.30-0.80) Absolute Eos (auto) 0.16 10^3/uL 10^3/uL (0.03-0.40) Absolute Basos (auto) 0.03 10^3/uL 10^3/uL (0.02-0.10) Absolute Nucleated RBC 0.00 10^3/uL 10^3/uL (0-0.01) Immature Gran % 0.0 % % (0.0-1.1) Immature Gran # 0.00 10^3/uL 10^3/uL (0.00-0.10) Sodium 136 mEq/L mEq/L (135-145) Potassium 4.1 mEq/L mEq/L (3.5-5.2) Chloride 104 mEq/L mEq/L (97-110) Carbon Dioxide 25 mEq/l mEq/l (22-31) Anion Gap 7 mEq/L mEq/L (6-14) BUN 11 mg/dL mg/dL (7-23) Creatinine 0.7 mg/dL mg/dL (0.6-1.0) Estimated GFR > 60 Glucose 104 mg/dL H mg/dL (70-100) Calcium 8.9 mg/dL mg/dL (8.5-10.4) Beta HCG, Qual NEGATIVE Medications Given: Discontinued Medications Sodium Chloride (Ns) 500 mls @ 0 mls/hr IV ONCE ONE; Wide Open PRN Reason: Protocol Stop: 04/24/18 17:06 Last Admin: 04/24/18 17:41 Dose: Not Given Sodium Chloride (Ns) 1,000 mls @ 0 mls/hr IV EDNOW ONE; Wide Open PRN Reason: Protocol Stop: 04/24/18 17:17 Last Admin: 04/24/18 17:37 Dose: 1,000 mls Departure - Departure Disposition: Home, Routine, Self-Care Clinical Impression: Unsteady gait, Ataxia Fall Qualifiers: Encounter type: initial encounter Qualified Code(s): W19.XXXA - Unspecified fall, initial encounter Condition: Good Instructions: Fall Prevention (ED), Facial Contusion (ED) Additional Instructions: Return with increasing headache, weakness, numbness, instability or any other concerns. Referrals: [facility],. [Clinic] - 2-3 days without fail
[2018-04-24] MEDS ORDERED: NS 500 ML IV ONE (17:05)
[2018-04-24 17:15] LABS: PLATELET COUNT 132 10^3/uL (150-400)
[2018-04-24] MEDS ORDERED: NS 1,000 ML IV ONE (17:16)
[2018-04-24 18:13] VITALS: BP 123/82
== END 2018-04-24 18:32 | disposition home or self-care (01) ==
LOC: EDUNIT#
DX: S09.90XA Unspecified injury of head, initial encounter (principal); R26.81 Unsteadiness on feet; W19.XXXA Unspecified fall, initial encounter; Y92.9 Unspecified place or not applicable; Y99.9 Unspecified external cause status; Y93.9 Activity, unspecified